=== PATIENT | female | born 1975 | race African-American/Black ===

== ENCOUNTER 2021-10-27 03:10 | Emergency (ER) | payer OTHER, SELFPAY | END 2021-10-27 05:30 | LOC: ERS 03:10 | DX: F10.129 Alcohol abuse with intoxication, unspecified (principal); S01.81XA Laceration without foreign body of other part of head, initial encounter; V89.2XXA Person injured in unspecified motor-vehicle accident, traffic, initial encounter; J45.909 Unspecified asthma, uncomplicated; F17.200 Nicotine dependence, unspecified, uncomplicated | CPT/HCPCS: 12013; 70450; 72125 ==

== ENCOUNTER 2023-07-09 02:12 | Emergency (ER) | payer SELFPAY ==
[2023-07-09] MEDS ORDERED: Albuterol 200 PUFF INH ONE (03:17)
== END 2023-07-09 03:19 ==
LOC: ERS 02:12
DX: J45.909 Unspecified asthma, uncomplicated (principal)